=== PATIENT | female | born 1990 | race Caucasian/White ===

== ENCOUNTER 2017-03-15 06:10 | Emergency (ER) | payer SELFPAY ==
[2017-03-15 06:36] LABS: APPEARANCE,URINE TURBID; BILIRUBIN,URINE NEGATIVE (NEGATIVE); GLUCOSE, URINE NEGATIVE (NEGATIVE); KETONES,URINE NEGATIVE (NEGATIVE); LEUKOCYTE ESTERASE,URINE LARGE (NEGATIVE); NITRITE,URINE NEGATIVE (NEGATIVE); PROTEIN,URINE 100 mg/dL (NEGATIVE); URINE SPECIFIC GRAVITY 1.025; UROBILINOGEN,URINE NEGATIVE mg/dL (<2.0)
[2017-03-15] MEDS ORDERED: CEPHALEXIN 500 MG CAPSULE PO ONE (07:50)
--- NOTE | 2017-03-15 07:57 | ER Document Report ---
ED General - General Chief Complaint: Urinary Problem Stated Complaint: ABDOMINAL PAIN Time Seen by Provider: 03/15/17 07:11 Mode of Arrival: Ambulatory Information source: Patient Notes: 26-year-old female presents with complaints of urinary frequency urgency and suprapubic pressure. Patient denies any fevers or chills denies any vomiting, patient states she is always nauseous. She denies a history of any kidney stones notes she is currently on her menses TRAVEL OUTSIDE OF THE [place] IN LAST 30 DAYS: No - HPI Onset: Yesterday Onset/Duration: Sudden Quality of pain: Burning Severity: Mild Pain Level: 1 Associated symptoms: Other Exacerbated by: Other - urination Relieved by: Denies Similar symptoms previously: Yes Recently seen / treated by doctor: No - Related Data Allergies/Adverse Reactions: ibuprofen [Ibuprofen] Allergy (Verified 03/15/17 07:32) iodine [Iodine] Allergy (Verified 03/15/17 07:32) Past Medical History - Social History Smoking Status: Never Smoker Cigarette use (# per day): No Chew tobacco use (# tins/day): No Smoking Education Provided: No Family History: Reviewed & Not Pertinent Patient has suicidal ideation: No Patient has homicidal ideation: No Pulmonary Medical History: Reports: Hx Asthma - spots induced Neurological Medical History: Reports: Hx Migraine, Hx Seizures Renal/ Medical History: Denies: Hx Peritoneal Dialysis Traumatic Medical History: Reports: Hx Traumatic Brain Injury - subdural hematoma Past Surgical History: Reports: Hx Neurologic Surgery - Immunizations Hx Diphtheria, Pertussis, Tetanus Vaccination: Yes Review of Systems - Review of Systems Notes: REVIEW OF SYSTEMS: CONSTITUTIONAL : Denies fever, chills, or sweats. Denies recent illness. EENT: Denies eye, ear, throat, or mouth pain or symptoms. Denies nasal or sinus congestion or discharge. Denies throat, tongue, or mouth swelling or difficulty swallowing. CARDIOVASCULAR: Denies chest pain. Denies palpitations or racing or irregular heart beat. Denies ankle edema. RESPIRATORY: Denies cough, cold, or chest congestion. Denies shortness of breath, difficulty breathing, or wheezing. GASTROINTESTINAL: Denies abdominal pain or distention. Denies nausea, vomiting , or diarrhea. Denies blood in vomitus, stools, or per rectum. Denies black, tarry stools. Denies constipation. GENITOURINARY: admits to frequency, urgency . FEMALE GENITOURINARY: Denies vaginal bleeding, heavy or abnormal periods, irregular periods. Denies vaginal discharge or odor. MUSCULOSKELETAL: Denies back or neck pain or stiffness. Denies joint pain or swelling. SKIN: Denies rash, lesions or sores. HEMATOLOGIC : Denies easy bruising or bleeding. LYMPHATIC: Denies swollen, enlarged glands. NEUROLOGICAL: Denies confusion or altered mental status. Denies passing out or loss of consciousness. Denies dizziness or lightheadedness. Denies headache. Denies weakness or paralysis or loss of use of either side. Denies problems with gait or speech. Denies sensory loss, numbness, or tingling. Denies seizures. PSYCHIATRIC: Denies anxiety or stress. Denies depression, suicidal ideation, or homicidal ideation. ALL OTHER SYSTEMS REVIEWED AND NEGATIVE. PHYSICAL EXAMINATION: GENERAL: Well-appearing, well-nourished and in no acute distress. HEAD: Atraumatic, normocephalic. EYES: Pupils equal round and reactive to light, extraocular movements intact, conjunctiva are normal. ENT: Nares patent, oropharynx clear without exudates. Moist mucous membranes. NECK: Normal range of motion, supple without lymphadenopathy LUNGS: Breath sounds clear to auscultation bilaterally and equal. No wheezes rales or rhonchi. HEART: Regular rate and rhythm without murmurs ABDOMEN: Soft,mild suprapubic tenderness , no flank pain . Female : deferred Musculoskeletal: Normal range of motion, no pitting or edema. No cyanosis. NEUROLOGICAL: Cranial nerves grossly intact. Normal speech, normal gait. Normal sensory, motor exams PSYCH: Normal mood, normal affect. SKIN: Warm, Dry, normal turgor, no rashes or lesions noted. Dictation was performed using 500px voice recognition software Physical Exam - Vital signs Vitals: Temp Pulse Resp BP Pulse Ox 97.9 F 78 18 110/65 99 03/15/17 06:14 03/15/17 06:14 03/15/17 06:14 03/15/17 06:14 03/15/17 06:14 Course - Re-evaluation Re-evalutation: 03/15/17 07:53 Patient has obvious urinary tract infection will be started on antibiotics, she has no signs of pyelonephritis or a infected stone After performing a Medical Screening Examination, I estimate there is LOW risk for ACUTE APPENDICITIS, BOWEL OBSTRUCTION, ACUTE CHOLECYSTITIS, PERFORATED DIVERTICULITIS, INCARCERATED HERNIA, PANCREATITIS, PELVIC INFLAMMATORY DISEASE, PERFORATED ULCER, ECTOPIC , or TUBO-OVARIAN ABSCESS, thus I consider the discharge disposition reasonable. Also, there is no evidence or peritonitis , sepsis, or toxicity. I have reevaluated this patient multiple times and no significant life threatening changes are noted. The patient and I have discussed the diagnosis and risks, and we agree with discharging home with close follow-up with the understanding that symptoms and presentations can change. We also discussed returning to the Emergency Department immediately if new or worsening symptoms occur. We have discussed the symptoms which are most concerning (e.g., bloody stool, fever, changing or worsening pain, vomiting) that necessitate immediate return. 03/15/17 07:57 - Vital Signs Vital signs: Temp Pulse Resp BP Pulse Ox 97.9 F 78 18 110/65 99 03/15/17 06:14 03/15/17 06:14 03/15/17 06:14 03/15/17 06:14 03/15/17 06:14 - Laboratory Laboratory results interpreted by me: 03/15/17 06:20 Urine Protein 100 H Urine Blood LARGE H Ur Leukocyte Esterase LARGE H Discharge - Discharge Clinical Impression: Suprapubic pressure UTI (urinary tract infection) Qualifiers: Urinary tract infection type: acute cystitis Hematuria presence: with hematuria Qualified Code(s): N30.01 - Acute cystitis with hematuria Condition: Stable Disposition: HOME, SELF-CARE Instructions: Urinary Tract Infection ([facility]) Additional Instructions: Follow up with your physician tomorrow for further care or return to the ED IMMEDIATELY if symptoms worsen or new concerns occur. If you cannot afford to follow up with your primary care physician a list of low cost clinics have been provided at the end of your discharge papers as well. Prescriptions: Cephalexin Monohydrate [Keflex 500 mg Capsule] 500 mg PO BID #10 capsule Phenazopyridine HCl [Pyridium] 200 mg PO Q8 #9 tablet
[2017-03-15 08:21] VITALS: BP 101/76
== END 2017-03-15 08:24 | disposition home or self-care (01) ==
LOC: ER 06:10
DX: N30.01 Acute cystitis with hematuria (principal); R11.0 Nausea; R10.2 Pelvic and perineal pain; Z88.6 Allergy status to analgesic agent; Z87.820 Personal history of traumatic brain injury
CPT/HCPCS: 81001; 81025; 99284

== ENCOUNTER 2017-05-10 18:39 | Emergency (ER) | payer SELFPAY ==
--- NOTE | 2017-05-10 19:08 | ER Document Report ---
ED Medical Screen (RME) - General Chief Complaint: Vaginal Pain Stated Complaint: VAGINAL DISCOMFORT Time Seen by Provider: 05/10/17 19:02 Mode of Arrival: Ambulatory Information source: Patient TRAVEL OUTSIDE OF THE [place] IN LAST 30 DAYS: No - HPI Patient complains to provider of: Vaginal discharge Notes: 05/10/17 19:07 Patient is a 26-year-old female presenting to the emergency room today complaining of vaginal discharge with irritation and odor that has been going on for approximately 1 week, she tried to use [id number] Monistat cream which did not alleviate her symptoms at all, she has an IUD, admits to unprotected sex with her of 3 years - Related Data Allergies/Adverse Reactions: Androgenic Anabolic Steroid Allergy (Verified 05/10/17 19:05) diphenhydramine [From Benadryl] Allergy (Verified 05/10/17 19:05) iodine [Iodine] Allergy (Verified 05/10/17 18:57) ondansetron [From Zofran (as hydrochloride)] Allergy (Verified 05/10/17 19:05) tramadol Allergy (Verified 05/10/17 19:05) Home Medications: Current Home Medications No Home Medications 05/10/17 [History] Past Medical History Pulmonary Medical History: Reports: Hx Asthma - spots induced Neurological Medical History: Reports: Hx Migraine, Hx Seizures Renal/ Medical History: Denies: Hx Peritoneal Dialysis Traumatic Medical History: Reports: Hx Traumatic Brain Injury - subdural hematoma Past Surgical History: Reports: Hx Neurologic Surgery - Immunizations Hx Diphtheria, Pertussis, Tetanus Vaccination: Yes Physical Exam - Vital signs Vitals: Temp Pulse Resp BP Pulse Ox 99.0 F 77 16 118/64 98 05/10/17 18:55 05/10/17 18:55 05/10/17 18:55 05/10/17 18:55 05/10/17 18:55 Course - Vital Signs Vital signs: Temp Pulse Resp BP Pulse Ox 99.0 F 77 16 118/64 98 05/10/17 18:55 05/10/17 18:55 05/10/17 18:55 05/10/17 18:55 05/10/17 18:55
--- NOTE | 2017-05-10 19:28 | ER Document Report ---
ED GI/ - General Chief Complaint: Vaginal Pain Stated Complaint: VAGINAL DISCOMFORT Time Seen by Provider: 05/10/17 19:02 Mode of Arrival: Ambulatory Information source: Patient Notes: 26-year-old female presents to ED for complaint of vaginal discharge irritation and odor for over a week. She states she has tried [id number] Monistat cream but she did not have any relief from her symptoms. She does have an IUD and she has been for 3 years to her . She states she does not think she has any STD but she does not understand why she cannot get rid of this discharge. TRAVEL OUTSIDE OF THE [place] IN LAST 30 DAYS: No - HPI Patient complains to provider of: Vaginal discharge, Vaginal pain. No: Vaginal bleeding Onset: Last week Timing/Duration: Persistent Quality of pain: Other - Irritation Severity at maximum: Mild Severity in ED: Mild Pain Level: 2 Location: Vaginal Vaginal bleeding (Compared to normal period): None LMP: 05/07/2017 Associated symptoms: Vaginal discharge, Other - Vaginal irritation discharge odor Exacerbated by: Denies Relieved by: Denies Similar symptoms previously: Yes Recently seen / treated by doctor: No - Related Data Allergies/Adverse Reactions: Androgenic Anabolic Steroid Allergy (Verified 05/10/17 19:05) diphenhydramine [From Benadryl] Allergy (Verified 05/10/17 19:05) iodine [Iodine] Allergy (Verified 05/10/17 18:57) ondansetron [From Zofran (as hydrochloride)] Allergy (Verified 05/10/17 19:05) tramadol Allergy (Verified 05/10/17 19:05) Home Medications: Current Home Medications No Home Medications 05/10/17 [History] Past Medical History - General Information source: Patient - Social History Smoking Status: Former Smoker Cigarette use (# per day): No Chew tobacco use (# tins/day): No Smoking Education Provided: No Frequency of alcohol use: Social Drug Abuse: None 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 [email or web address] Lives with: Family Family History: Other - States she does not know her family medical history Patient has suicidal ideation: No Patient has homicidal ideation: No - Past Medical History Cardiac Medical History: Reports: None Pulmonary Medical History: Reports: Hx Asthma - spots induced EENT Medical History: Reports: None Neurological Medical History: Reports: Hx Migraine, Hx Seizures Endocrine Medical History: Reports: None, Other - Gilbert's Syndrome Renal/ Medical History: Reports: None Malignancy Medical History: Reports: None GI Medical History: Reports: None Musculoskeltal Medical History: Reports Hx Musculoskeletal Deformity, Reports Hx Musculoskeletal Trauma Skin Medical History: Reports None Psychiatric Medical History: Reports: None Traumatic Medical History: Reports: Hx Traumatic Brain Injury - subdural hematoma Infectious Medical History: Reports: None Past Surgical History: Reports: Hx Neurologic Surgery, Hx Orthopedic Surgery - left knee - Immunizations Immunizations up to date: Yes Hx Diphtheria, Pertussis, Tetanus Vaccination: Yes Review of Systems - Review of Systems Constitutional: No symptoms reported EENT: No symptoms reported Cardiovascular: No symptoms reported Respiratory: No symptoms reported Gastrointestinal: No symptoms reported Genitourinary: No symptoms reported Female Genitourinary: No symptoms reported Musculoskeletal: No symptoms reported Skin: No symptoms reported Hematologic/Lymphatic: No symptoms reported Neurological/Psychological: No symptoms reported -: Yes All other systems reviewed and negative Physical Exam - Vital signs Vitals: Temp Pulse Resp BP Pulse Ox 99.0 F 77 16 118/64 98 05/10/17 18:55 05/10/17 18:55 05/10/17 18:55 05/10/17 18:55 05/10/17 18:55 Interpretation: Normal - General General appearance: Appears well, Alert - HEENT Head: Normocephalic, Atraumatic Eyes: Normal Pupils: PERRL - Respiratory Respiratory status: No respiratory distress Chest status: Nontender Breath sounds: Normal Chest palpation: Normal - Cardiovascular Rhythm: Regular Heart sounds: Normal auscultation Murmur: No - Abdominal Inspection: Normal Distension: No distension Bowel sounds: Normal Tenderness: Nontender Organomegaly: No organomegaly - Genitourinary External exam: Normal Speculum exam: Vaginal discharge - minimal Vaginal bleeding: None Bimanuel exam: No: Cervical motion tender, Bladder/Urethral tender, Adnexal mass , Adnexal tenderness, Uterus enlarged - Back Back: Normal, Nontender - Extremities General upper extremity: Normal inspection, Nontender, Normal color, Normal ROM , Normal temperature General lower extremity: Normal inspection, Nontender, Normal color, Normal ROM , Normal temperature, Normal weight bearing. No: Caridad's sign - Neurological Neuro grossly intact: Yes Cognition: Normal Orientation: AAOx4 [place] Coma Scale Eye Opening: Spontaneous [place] Coma Scale Verbal: Oriented [place] Coma Scale Motor: Obeys Commands [place] Coma Scale Total: 15 Speech: Normal Motor strength normal: LUE, RUE, LLE, RLE Sensory: Normal - Psychological Associated symptoms: Normal affect, Normal mood - Skin Skin Temperature: Warm Skin Moisture: Dry Skin Color: Normal Course - Re-evaluation Re-evalutation: 05/10/17 22:31 Patient called and given the results of her GC and chlamydia. She had been treated with Rocephin and azithromycin before discharge because I did not have the results of the test before she was discharged. Her urine and her wet mount were negative. Patient to follow-up with her primary doctor. - Vital Signs Vital signs: Temp Pulse Resp BP Pulse Ox 98.5 F 87 16 110/68 99 05/10/17 21:22 05/10/17 21:22 05/10/17 21:22 05/10/17 21:22 05/10/17 21:22 - Laboratory Laboratory results interpreted by me: 05/10/17 19:00 Urine Protein 30 H Ur Leukocyte Esterase TRACE H Discharge - Discharge Clinical Impression: Vaginitis Qualifiers: Chronicity: acute Qualified Code(s): N76.0 - Acute vaginitis Condition: Stable Disposition: HOME, SELF-CARE Instructions: Family Physicians / Practices Additional Instructions: VAGINITIS: Your exam shows that you have vaginitis, a vaginal infection. The infection can be caused by a many different organisms, including trichomonas or Gardnerella. The usual symptoms are vaginal irritation and discharge. The treatment is usually antibiotics such as Flagyl. Laboratory tests can determine which germ is responsible. Use the medication as prescribed. Because this infection can be transmitted sexually, your sexual partner may need to be checked and treated also. If your physician has not discussed this with you, please check before resuming sexual relations. If a culture shows gonorrhea or chlamydia, the infection must be reported to the health department. Call the doctor if you develop pelvic pain, fever, or problems with urination, or if you don't improve as expected. CEPHALOSPORINS: An antibiotic of the cephalosporin class has been prescribed. This type of antibiotic covers a wide variety of infections, including those of the skin, lungs, middle ear, and urinary tract. This antibiotic is somewhat similar to the penicillin family. In rare cases , a person who is allergic to penicillin will also be allergic to this medication. If you have had a severe allergic reaction to penicillin, and have not taken this antibiotic since that time, notify your doctor. Antibiotics which cover many germs ("broad spectrum" antibiotics) are more likely to cause diarrhea or "yeast" infections. Women prone to vaginal yeast problems may suffer an attack after taking this antibiotic. In infants, oral thrush (white spots "stuck" on the cheek) or yeast diaper rash may result. See your doctor if these problems occur. Call the doctor at once if you develop hives, itching, shortness of breath , or lightheadedness. AZITHROMYCIN: Azithromycin (Zithromax) is a broad spectrum antibiotic in the same class as erythromycin. It can treat a variety of bacterial infections, but is most frequently used for respiratory infections. Azithromycin is extremely long-lasting. It accumulates in body tissues and continues to kill bacteria for many days. In order to improve absorption, Azithromycin should be taken at least one hour before or two hours after a meal. It does not have the same strong tendency to upset the stomach as erythromycin and is usually very well tolerated. Patients who have had a rash or other true allergic reactions to erythromycin should not take this medication. Call if you develop gastrointestinal distress, severe diarrhea, rash, hives, itching, or shortness of breath. FOLLOW-UP CARE: If you have been referred to a physician for follow-up care, call the physician s office for an appointment as you were instructed or within the next two days. If you experience worsening or a significant change in your symptoms, notify the physician immediately or return to the Emergency Department at any time for re-evaluation.
[2017-05-10] MEDS ORDERED: AZITHROMYCIN 250 MG TABLET PO ONE (20:31)
[2017-05-10] MEDS ORDERED: LIDOCAINE 1% INJ-PF (10 MG/ML) 30 ML SDV INJ ONE (20:31)
[2017-05-10] MEDS ORDERED: CEFTRIAXONE INJ 250 MG VIAL IM ONE (20:31)
[2017-05-10 20:55] LABS: APPEARANCE,URINE SLIGHTLY-CLOUDY; BILIRUBIN,URINE NEGATIVE (NEGATIVE); GLUCOSE, URINE NEGATIVE (NEGATIVE); KETONES,URINE NEGATIVE (NEGATIVE); LEUKOCYTE ESTERASE,URINE TRACE (NEGATIVE); NITRITE,URINE NEGATIVE (NEGATIVE); PROTEIN,URINE 30 mg/dL (NEGATIVE); URINE SPECIFIC GRAVITY 1.029; UROBILINOGEN,URINE NEGATIVE mg/dL (<2.0)
[2017-05-10 21:24] VITALS: BP 110/68
[2017-05-10 21:51] LABS: CHLAM PCR NOT DETECTED (NOT DETECT)
== END 2017-05-10 21:22 | disposition home or self-care (01) ==
LOC: ER 18:39
DX: N76.0 Acute vaginitis (principal); R10.2 Pelvic and perineal pain; N89.8 Other specified noninflammatory disorders of vagina; Z87.891 Personal history of nicotine dependence
CPT/HCPCS: 99283; 96372; 87086; 87210; 81025; 81001; 87491; 87591; J3490; J0696

== ENCOUNTER 2018-07-17 23:19 | Emergency (ER) | payer SELFPAY ==
[2018-07-17] MEDS ORDERED: HYDROMORPHONE HCL INJ/PF 2 MG/ML AMPULE IM ONE (23:44)
--- NOTE | 2018-07-17 23:49 | ER Document Report ---
ED General - General Chief Complaint: Fall Stated Complaint: FALL, RIGHT HIP/LEG INJURY Time Seen by Provider: 07/17/18 23:38 Notes: Patient is a pleasant 27-year-old female presents with complaint of right hip, right thigh, and right knee pain. She was on a deck and the deck broken her leg went through the deck. She said she did fall forward but did not hit her head. She does have previous history of a subdural hematoma from a previous fall but says she did not hit her head and has no headache or head pain. No pain in her left leg. No pain in her upper extremities. No pain in her back or neck. She is not on blood thinners. She has no other complaints at this time. She states she can feel into her foot and toes but is just a little bit "tingly"in some areas. TRAVEL OUTSIDE OF THE [place] IN LAST 30 DAYS: No - Related Data Allergies/Adverse Reactions: Androgenic Anabolic Steroid Allergy (Verified 05/10/17 19:05) diphenhydramine [From Benadryl] Allergy (Verified 05/10/17 19:05) iodine [Iodine] Allergy (Verified 05/10/17 18:57) ondansetron [From Zofran (as hydrochloride)] Allergy (Verified 05/10/17 19:05) tramadol Allergy (Verified 05/10/17 19:05) Past Medical History - Social History Smoking Status: Never Smoker Frequency of alcohol use: None Drug Abuse: None Family History: Reviewed & Not Pertinent, Other - States she does not know her family medical history Pulmonary Medical History: Reports: Hx Asthma - spots induced Neurological Medical History: Reports: Hx Migraine, Hx Seizures Renal/ Medical History: Denies: Hx Peritoneal Dialysis Musculoskeletal Medical History: Reports Hx Musculoskeletal Deformity, Reports Hx Musculoskeletal Trauma Traumatic Medical History: Reports: Hx Traumatic Brain Injury - subdural hematoma Past Surgical History: Reports: Hx Neurologic Surgery, Hx Orthopedic Surgery - left knee - Immunizations Immunizations up to date: Yes Hx Diphtheria, Pertussis, Tetanus Vaccination: Yes Review of Systems - Review of Systems Notes: My Normal Review Basic REVIEW OF SYSTEMS: CONSTITUTIONAL : Denies fever, chills, or sweats. Denies recent illness. MUSCULOSKELETAL: Right hip and knee pain SKIN: Denies rash or skin lesions.. NEUROLOGICAL: Denies altered mental status or loss of consciousness. Denies headache. Denies weakness or paralysis or loss of use of either side. Denies problems with gait or speech. Denies sensory or motor loss. ALL OTHER SYSTEMS REVIEWED AND NEGATIVE. Physical Exam - Vital signs Vitals: Temp Pulse Resp BP Pulse Ox 98.0 F 91 18 120/67 98 07/17/18 23:30 07/17/18 23:30 07/17/18 23:30 07/17/18 23:30 07/17/18 23:30 - Notes Notes: General Appearance: Well nourished, alert, cooperative, no acute distress, moderate obvious discomfort. Vitals: reviewed, See vital signs table. Head: no swelling or tenderness to the head Eyes: PERRL, EOMI, Conjuctiva clear Neck: Supple, no neck tenderness, No thyromegaly Back: No tenderness to palpation of thoracic or lumbar spine. No step-offs or deformities. Lungs: No wheezing, No rales, No rhonci, No accessory muscle use, good air exchange bilaterally. Heart: Normal rate, Regular rythm, No murmur, no rub Extremities: strength 5/5 in all extremities, good pulses in all extremities, pain with extension of the right knee. She is able to hold the right leg in extension against gravity without difficulty. Some pain to palpation of the right knee that is mainly to the lateral and posterior aspect of the knee. No ligamentous laxity. Pain to palpation over lateral mid thigh and then up into the right hip. Pain with movement of the right hip. No obvious deformity. Pelvis is stable. No pain to palpation of left lower extremity. Patient is able to flex and extend the toes of the right foot. She is able to feel me touch all the toes on the right foot. Distal pulses are intact. Skin: warm, dry, appropriate color, no rash Neuro: speech clear, oriented x 3, normal affect, responds appropriately to questions. Course - Re-evaluation Re-evalutation: 07/18/18 06:52 Patient's x-rays are normal. She has no evidence of bony injury. She does not have any ligament laxity in the knee. I will give her crutches to use being that her to bear weight at this time. I informed her she should follow-up with orthopedist, Dr. Banks, on Saturday if she still having any pain with weightbearing that he can reevaluate her. I encouraged her return to ER if she has intractable pain or feels unwell. Patient agrees with plan was discharged home. Dictation of this chart was performed using voice recognition software; therefore, there may be some unintended grammatical errors. - Vital Signs Vital signs: Temp Pulse Resp BP Pulse Ox 98.1 F 75 14 125/75 98 07/18/18 01:49 07/18/18 01:49 07/18/18 01:49 07/18/18 01:49 07/18/18 01:49 Discharge - Discharge Clinical Impression: Contusion of right knee Qualifiers: Encounter type: initial encounter Qualified Code(s): S80.01XA - Contusion of right knee, initial encounter Contusion of right hip Qualifiers: Encounter type: initial encounter Qualified Code(s): S70.01XA - Contusion of right hip, initial encounter Condition: Good Disposition: HOME, SELF-CARE Instructions: Oral Narcotic Medication ([facility]) Additional Instructions: Please use the crutches until he can bear weight on your knee and leg without significant pain. Please follow-up with Dr. Banks, your orthopedist, on Saturday for reevaluation. Please return to the ER immediately if you have severe intractable pain, large swelling, or have any concerns whatsoever. Do not drive or operate machinery when taking the Morphine as it can cause drowsiness. Save the Morphine for breakthrough pain and take Tylenol 500mg every 4 hours. Prescriptions: Morphine Sulfate [Morphine Ir 15 Mg Tablet] 15 mg PO Q4 PRN #15 tablet PRN Reason: take for breakthrough pain
--- NOTE | 2018-07-18 00:32 | RADIOLOGY REPORT (SQ) ---
EXAM DESCRIPTION: XR HIP 2 OR MORE VIEWS, XR KNEE 4 OR MORE VIEWS COMPLETED DATE/TME: 07/17/2018 23:44 CLINICAL HISTORY: 27 years Female, trauma COMPARISON: None. Findings: IUD. Bones, joints, and soft tissues of the RIGHT XR HIP 2 VIEWS, XR KNEE 4 VIEWS appear otherwise intact. IMPRESSION: No acute findings.
--- NOTE | 2018-07-18 01:04 | RADIOLOGY REPORT (SQ) ---
EXAM DESCRIPTION: XR FEMUR 2 VIEWS COMPLETED DATE/TME: 07/18/2018 00:33 CLINICAL HISTORY: 27 years, Female, trauma COMPARISON: None. NUMBER OF VIEWS: TECHNIQUE: LIMITATIONS: None. FINDINGS: No fracture or dislocation. The hip and knee joints appear intact. IMPRESSION: No fracture or dislocation. 2011 [employer]- All Rights Reserved
[2018-07-18 01:51] VITALS: BP 125/75
== END 2018-07-18 01:49 | disposition home or self-care (01) ==
LOC: ER 23:19
DX: S70.01XA Contusion of right hip, initial encounter (principal); S80.01XA Contusion of right knee, initial encounter; M25.551 Pain in right hip; M25.561 Pain in right knee; M79.651 Pain in right thigh; W13.3XXA Fall through floor, initial encounter; R20.2 Paresthesia of skin; J45.909 Unspecified asthma, uncomplicated; Z88.8 Allergy status to other drugs, medicaments and biological substances; Z88.5 Allergy status to narcotic agent
CPT/HCPCS: 99283; 96372; 73552; 73502; 73564; J1170

== ENCOUNTER 2019-03-03 11:12 | Emergency (ER) | payer SELFPAY ==
[2019-03-03] MEDS ORDERED: PROMETHAZINE HCL 25 MG TABLET PO ONE (11:33)
--- NOTE | 2019-03-03 11:35 | ER Document Report ---
ED Medical Screen (RME) - General Chief Complaint: Probable Seizure Stated Complaint: FALL/HEAD INJURY Time Seen by Provider: 03/03/19 11:30 Mode of Arrival: Wheelchair Information source: Patient Notes: Patient states that she had a seizure at work and fell hitting her head and right hip. Patient reports nausea with vomiting. Patient does have a history of previous subdural hematoma with hardware placement. Patient has a history of seizures although is not on any medications to manage his seizures. I have greeted and performed a rapid initial assessment of this patient. A comprehensive ED assessment and evaluation of the patient, analysis of test results and completion of the medical decision making process will be conducted by additional ED providers. TRAVEL OUTSIDE OF THE [place] IN LAST 30 DAYS: No - Related Data Allergies/Adverse Reactions: Androgenic Anabolic Steroid Allergy (Verified 03/03/19 11:15) diphenhydramine [From Benadryl] Allergy (Verified 03/03/19 11:15) iodine [Iodine] Allergy (Verified 03/03/19 11:15) ondansetron [From Zofran (as hydrochloride)] Allergy (Verified 03/03/19 11:15) tramadol Allergy (Verified 03/03/19 11:15) Past Medical History Pulmonary Medical History: Reports: Hx Asthma - spots induced Neurological Medical History: Reports: Hx Migraine, Hx Seizures Renal/ Medical History: Denies: Hx Peritoneal Dialysis Musculoskeltal Medical History: Reports Hx Musculoskeletal Deformity, Reports Hx Musculoskeletal Trauma Traumatic Medical History: Reports: Hx Traumatic Brain Injury - subdural hematoma Past Surgical History: Reports: Hx Neurologic Surgery, Hx Orthopedic Surgery - left knee - Immunizations Immunizations up to date: Yes Hx Diphtheria, Pertussis, Tetanus Vaccination: Yes Physical Exam - Vital signs Vitals: Temp Pulse Resp BP Pulse Ox 98.3 F 82 16 120/75 98 03/03/19 11:23 03/03/19 11:23 03/03/19 11:23 03/03/19 11:23 03/03/19 11:23 - General Notes: Right parietal scalp tenderness - Neurological Neuro grossly intact: Yes Cognition: Normal [place] Coma Scale Eye Opening: Spontaneous [place] Coma Scale Verbal: Oriented [place] Coma Scale Motor: Obeys Commands [place] Coma Scale Total: 15 Course - Vital Signs Vital signs: Temp Pulse Resp BP Pulse Ox 98.3 F 82 16 120/75 98 03/03/19 11:23 03/03/19 11:23 03/03/19 11:23 03/03/19 11:23 03/03/19 11:23
[2019-03-03 12:17] LABS: ABSOLUTE LYMPHOCYTES (AUTO) 1.1 10^3/uL (0.5-4.7); ABSOLUTE MONOCYTES (AUTO) 0.3 10^3/uL (0.1-1.4); ABSOLUTE NEUT (AUTO) 4.3 10^3/uL (1.7-8.2); BASOPHILS % (AUTO) 0.3 % (0-2); EOSINOPHILS % (AUTO) 0.5 % (0-6); HEMATOCRIT 44.2 % (36.0-47.0); HEMOGLOBIN 15.1 g/dL (12.0-15.5); LYMPHOCYTES % (AUTO) 18.9 % (13-45); MEAN CORPUSCULAR HEMOGLOBIN 31.3 pg (27.0-33.4); MEAN CORPUSCULAR HGB CONC 34.1 g/dL (32.0-36.0); MEAN CORPUSCULAR VOLUME 92 fl (80-97); PLATELET COUNT 239 10^3/uL (150-450); RED BLOOD COUNT 4.81 10^6/uL (3.72-5.28); SEGMENTED NEUTROPHILS % (AUTO) 74.3 % (42-78); TOTAL CELLS COUNTED % (AUTO) 100 %; WHITE BLOOD COUNT 5.8 10^3/uL (4.0-10.5)
--- NOTE | 2019-03-03 12:33 | RADIOLOGY REPORT (SQ) ---
EXAM DESCRIPTION: CT HEAD WITHOUT COMPLETED DATE/TIME: 03/03/2019 11:56 am REASON FOR STUDY: fall, seizure,ESPOSITO hx sub hematoma/plate COMPARISON: CT brain 10/31/2013 TECHNIQUE: Axial images acquired through the brain without intravenous contrast. Images reviewed wi th bone, brain and subdural windows. Additional sagittal and coronal reconstructions were generated. Images stored on PACS. All CT scanners at this facility use dose modulation, iterative reconstruction, and/or weight based d osing when appropriate to reduce radiation dose to as low as reasonably achievable (ALARA). [facility]: Dose Right [facility]: CareDose [facility]: Dose Right [facility]: Teradose 4D [facility]: BlogBus RADIATION DOSE: CT Rad equipment meets quality standard of care and radiation dose reduction techniq ues were employed. CTDIvol: 53.2 mGy. DLP: 1044 mGy-cm. mGy. LIMITATIONS: None. FINDINGS: VENTRICLES: Normal size and contour. CEREBRUM: No masses. No hemorrhage. No midline shift. No evidence for acute infarction. Normal gra y/white matter differentiation. No areas of low density in the white matter. CEREBELLUM: No masses. No hemorrhage. No alteration of density. No evidence for acute infarction. EXTRAAXIAL SPACES: No fluid collections. No masses. ORBITS AND GLOBE: No intra- or extraconal masses. Normal contour of globe without masses. CALVARIUM: Old right frontal craniotomy, history of subdural hematoma PARANASAL SINUSES: No fluid or mucosal thickening. SOFT TISSUES: No mass or hematoma. OTHER: No other significant finding. IMPRESSION: OLD RIGHT FRONTAL CRANIOTOMY. OTHERWISE, UNREMARKABLE BRAIN CT WITHOUT CONTRAST. EVIDENCE OF ACUTE STROKE: NO. COMMENT: Quality ID # [id number]: Final reports with documentation of one or more dose reduction techniques (e.g., Automated exposure control, adjustment of the mA and/or kV according to patient size, use of iterative reconstruction technique) TECHNICAL DOCUMENTATION: JOB ID: [id number] [employer]- All Rights Reserved Reading location - IP/workstation name: [email or web address]
--- NOTE | 2019-03-03 12:45 | ER Document Report ---
ED Seizure - General Chief Complaint: Probable Seizure Stated Complaint: FALL/HEAD INJURY Time Seen by Provider: 03/03/19 11:30 Mode of Arrival: Wheelchair Notes: Patient brought in because she had a seizure today while at work. Patient has a history of seizures secondary to a fall with an injury and a subdural hematoma about 17 years ago. She had 4 bur holes and a metal plate put in her head. She was on medications for seizures, but stopped taking them about 9 years ago because she did not like the way they made her feel. She indicates that she was on something starting with a D, probably Depakote. She is been having some throbbing headache for a couple of days. When she fell today with her seizure, she hit her head on a hardwood floor. Patient's most recent seizure before today was about 10 months ago, in May last year. - Related Data Allergies/Adverse Reactions: Androgenic Anabolic Steroid Allergy (Verified 03/03/19 11:15) diphenhydramine [From Benadryl] Allergy (Verified 03/03/19 11:15) iodine [Iodine] Allergy (Verified 03/03/19 11:15) ondansetron [From Zofran (as hydrochloride)] Allergy (Verified 03/03/19 11:15) tramadol Allergy (Verified 03/03/19 11:15) Past Medical History - General Information source: Patient - Social History Smoking Status: Unknown if Ever Smoked Family History: Reviewed & Not Pertinent, Other - States she does not know her family medical history Pulmonary Medical History: Reports: Hx Asthma - spots induced Neurological Medical History: Reports: Hx Migraine, Hx Seizures Musculoskeletal Medical History: Reports Hx Musculoskeletal Deformity, Reports Hx Musculoskeletal Trauma Traumatic Medical History: Reports: Hx Traumatic Brain Injury - subdural hematoma Past Surgical History: Reports: Hx Neurologic Surgery, Hx Orthopedic Surgery - left knee - Immunizations Immunizations up to date: Yes Hx Diphtheria, Pertussis, Tetanus Vaccination: Yes Review of Systems - Review of Systems Notes: REVIEW OF SYSTEMS: CONSTITUTIONAL : Denies fever. EENT: Denies eye, ear, nose or mouth or throat pain or other symptoms. CARDIOVASCULAR: Denies chest pain. RESPIRATORY: Denies cough, chest congestion, or shortness of breath. GASTROINTESTINAL: Denies abdominal pain or nausea, vomiting, or diarrhea. GENITOURINARY: Denies difficulty or painful urinating, urinary frequency, blood in urine. History of endometriosis. MUSCULOSKELETAL: Denies back or neck pain. Denies joint pain or swelling. SKIN: Denies rash or skin lesions. NEUROLOGICAL: Patient says she has had a pressure headache for the past couple of days. ALL OTHER SYSTEMS REVIEWED AND NEGATIVE. Physical Exam - Vital signs Vitals: Temp Pulse Resp BP Pulse Ox 98.3 F 82 16 120/75 98 03/03/19 11:23 03/03/19 11:23 03/03/19 11:23 03/03/19 11:23 03/03/19 11:23 Interpretation: Normal Notes: PHYSICAL EXAMINATION: GENERAL: Well-appearing, in no acute distress. Awake, alert, and oriented x3. HEAD: Atraumatic, normocephalic. Tender right side of the head, in the parietal region, but I do not feel any significant lumps or bumps. No bleeding seen. EYES: Pupils equal round and reactive to light, extraocular movements intact. ENT: oropharynx clear without exudates. Moist mucous membranes. NECK: Normal range of motion, supple. LUNGS: Breath sounds clear and equal bilaterally. HEART: Regular rate and rhythm without murmurs. ABDOMEN: Soft, nontender. No guarding or rebound. No masses. BACK: No tenderness throughout entire back. EXTREMITIES: Normal range of motion without pain. NEUROLOGICAL: Normal speech, normal gait. Normal sensory, motor, and reflex exams. Awake, alert, and oriented x3. Cranial nerves normal. PSYCH: Normal mood, normal affect. SKIN: Warm, dry, no rashes. Course - Re-evaluation Re-evalutation: 03/03/19 18:15 Offered patient anti-seizure medications. I told her that there is been si gnificant improvements in the medication since she was taking Depakote 10 years ago. I suggested a prescription of Keppra, but the patient said that she was declining for the moment. I advised the patient not to drive her vehicle for the next few days. She really should be seen by a neurologist and certified is safe to be driving, but I do not think the patient is going to do that. I am giving her a note for work for a couple of days. She is advised to return at any time should she wish to be reevaluated or reconsider medications. - Vital Signs Vital signs: Temp Pulse Resp BP Pulse Ox 98 F 61 16 128/78 H 100 03/03/19 13:04 03/03/19 13:04 03/03/19 13:04 03/03/19 13:04 03/03/19 13:04 - Laboratory Result Diagrams: 03/03/19 11:50 03/03/19 11:50 Discharge - Discharge Clinical Impression: Seizures Condition: Stable Disposition: HOME, SELF-CARE Additional Instructions: Seizure You have had a seizure. Seizure disorders (epilepsy) of one sort or another affect about one out of 50 people. The seizure occurs because of abnormal electrical activity in the brain. Seizures may be due to drugs and alcohol, strokes, brain injury, or infection. In the most common form of epilepsy, no cause can be found. You will require further evaluation to determine the cause of your seizure, and to determine whether anti-seizure medication is required. This follow-up testing is important, so please call us if you encounter problems with scheduling of tests or appointments. YOU SHOULD NOT DRIVE until released to do so by your physician. 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 Call the doctor if seizures recur, or if you develop new symptoms such as fever, severe headache, stiff neck, confusion or increasing sleepiness, weakness or numbness, or visual problems. You have decided that you do not wish to take any antiseizure medications. Remember that I advised you that your threshold for having a seizure is lower soon after having a seizure than after a more sustained period of time. He should probably not drive a vehicle over the next 2 to 3 days, at a minimum. I did recommend he follow-up with a neurologist. FOLLOW-UP CARE: If you have been referred to a physician for follow-up care, call the physicians office for an appointment as you were instructed or within the next two days. If you experience worsening or a significant change in your symptoms, notify the physician immediately or return to the Emergency Department at any time for re-evaluation. Forms: Return to Work
[2019-03-03 13:05] VITALS: BP 128/78
== END 2019-03-03 13:10 | disposition home or self-care (01) ==
LOC: ER 11:12
DX: R56.9 Unspecified convulsions (principal); R51 Headache; W19.XXXA Unspecified fall, initial encounter; Z79.899 Other long term (current) drug therapy; J45.909 Unspecified asthma, uncomplicated
CPT/HCPCS: 36415; 70450; 85025; 99284

== ENCOUNTER 2020-02-14 01:00 | Emergency (ER) | payer BC ==
[2020-02-14 01:20] LABS: ABSOLUTE LYMPHOCYTES (AUTO) 1.5 10^3/uL (0.5-4.7); ABSOLUTE MONOCYTES (AUTO) 0.8 10^3/uL (0.1-1.4); BASOPHILS % (AUTO) 0.4 % (0-2); EOSINOPHILS % (AUTO) 0.2 % (0-6); HEMATOCRIT 41.6 % (36.0-47.0); HEMOGLOBIN 14.5 g/dL (12.0-15.5); LYMPHOCYTES % (AUTO) 14.5 % (13-45); MEAN CORPUSCULAR HEMOGLOBIN 32.2 pg (27.0-33.4); MEAN CORPUSCULAR HGB CONC 34.8 g/dL (32.0-36.0); MEAN CORPUSCULAR VOLUME 93 fl (80-97); MONOCYTES % (AUTO) 7.8 % (3-13); PLATELET COUNT 272 10^3/uL (150-450); RED BLOOD COUNT 4.49 10^6/uL (3.72-5.28); RED CELL DISTRIBUTION WIDTH 12.8 % (11.5-14.0); SEGMENTED NEUTROPHILS % (AUTO) 77.1 % (42-78); TOTAL CELLS COUNTED % (AUTO) 100 %; WHITE BLOOD COUNT 10.4 10^3/uL (4.0-10.5)
[2020-02-14 01:41] VITALS: BP 139/80
--- NOTE | 2020-02-14 01:46 | ER Document Report ---
ED General - General Chief Complaint: Seizure Stated Complaint: POSSIBLE SEIZURE Time Seen by Provider: 02/14/20 01:30 Notes: Patient is a 29-year-old female that comes to the emergency department for chief complaint of seizure. Patient states she had 2 beers, was playing darts, felt really hot, and then was witnessed having a seizure, falling to the ground, hitting the back of her head. Patient comes by EMS, she vomited once, she had a 10-second tonic-clonic seizure per EMS after this. Patient is awake, oriented, states she has a headache, denies neck pain, focal numbness or weakness, or any other complaints other than nausea. She states she does have a history of seizures in the past, last 1 was around a month ago, however she is not on seizure medications. She states she had a subdural hemorrhage at 11 years old from a head injury and occasionally has seizures because of this. She states that she has been on a variety of medications including Abilify, Seroquel, Xanax, lithium, however she is not currently on any medications because she was not tolerating the lithium after they stopped her other medications. She denies recreational drugs. TRAVEL OUTSIDE OF THE [place] IN LAST 30 DAYS: No - Related Data Allergies/Adverse Reactions: Androgenic Anabolic Steroid Allergy (Verified 03/03/19 11:15) diphenhydramine [From Benadryl] Allergy (Verified 03/03/19 11:15) iodine [Iodine] Allergy (Verified 03/03/19 11:15) ondansetron [From Zofran (as hydrochloride)] Allergy (Verified 03/03/19 11:15) tramadol Allergy (Verified 03/03/19 11:15) Past Medical History - General Information source: Patient - Social History Smoking Status: Never Smoker Chew tobacco use (# tins/day): No Frequency of alcohol use: Occasional Drug Abuse: None Lives with: Friend Family History: Reviewed & Not Pertinent, Other - States she does not know her family medical history Patient has homicidal ideation: No Pulmonary Medical History: Reports: Hx Asthma - spots induced Neurological Medical History: Reports: Hx Migraine, Hx Seizures Renal/ Medical History: Denies: Hx Peritoneal Dialysis Musculoskeletal Medical History: Reports Hx Musculoskeletal Deformity, Reports Hx Musculoskeletal Trauma Traumatic Medical History: Reports: Hx Traumatic Brain Injury - subdural hematoma at age 11 from trauma Past Surgical History: Reports: Hx Neurologic Surgery, Hx Orthopedic Surgery - left knee - Immunizations Immunizations up to date: Yes Hx Diphtheria, Pertussis, Tetanus Vaccination: Yes Review of Systems - Review of Systems Constitutional: See HPI EENT: No symptoms reported Cardiovascular: No symptoms reported Respiratory: No symptoms reported Gastrointestinal: See HPI Genitourinary: No symptoms reported Female Genitourinary: No symptoms reported Musculoskeletal: No symptoms reported Skin: No symptoms reported Hematologic/Lymphatic: No symptoms reported Neurological/Psychological: See HPI Physical Exam - Vital signs Vitals: Temp Resp Pulse Ox 98.9 F 24 H 97 02/14/20 01:03 02/14/20 01:03 02/14/20 01:03 - Notes Notes: GENERAL: Alert, does not appear to be in distress although patient moves slightly sluggishly HEAD: Normocephalic, atraumatic. EYES: Pupils equal, round, and reactive to light. Extraocular movements intact. ENT: Oral mucosa moist, tongue midline. Oropharynx unremarkable. Airway patent. Nares patent, sinuses non-tender, ear canals unremarkable, TM's intact. NECK: Full range of motion. Supple. Trachea midline. No lymphadenopathy. LUNGS: Clear to auscultation bilaterally, no wheezes, rales, or rhonchi. No respiratory distress. Non-tender chest wall. HEART: Regular rate and rhythm. No murmur ABDOMEN: Soft, non-tender. Non-distended. EXTREMITIES: Moves all 4 extremities spontaneously. No edema, normal radial and dorsalis pedis pulses bilaterally. No cyanosis. BACK: no cervical, thoracic, lumbar midline tenderness. No saddle anesthesia, normal distal neurovascular exam. Moves all extremities in full range of motion. NEUROLOGICAL: Alert and oriented x3. Normal speech. Cranial nerves II through XII grossly intact. Strength 5/5 in all extremities. PSYCH: Speaks quietly, however unremarkable otherwise SKIN: Warm, dry, normal turgor. No rashes or lesions noted. Course - Re-evaluation Re-evalutation: On my evaluation patient is complaining of a headache but she is alert, is not slurring her speech, ambulates without difficulty, does not have any signs of trauma. Patient does not appear to be postictal on my evaluation. However because of her alcohol, head injury, seizure, vomiting I recommended CAT scan of the head and neck, laboratory work-up which has already been drawn, bolus of Keppra and symptom management. However patient declined. She states that she has "been dealing with this kind of thing since I was 11", she states that she w ould like to be discharged to go home with her friend who is outside. I strongly recommended that we perform CAT scan imaging to rule out intracranial hemorrhage, discussed the possibilities of this and the disastrous potential if she does have one. Patient states understanding but again states that she will be discharged home and she will return if she worsens. I asked her to stay until I checked her blood alcohol level which is going to be resulted anytime and if she is clinically intoxicated then I would be legally responsible for her and she would need to stay regardless of her wishes. She does state agreement. I checked patient's labs, initial labs are still pending, alcohol is resulted however and is 97, I went back immediately to speak to the patient but patient had already left the room. Patient left the room, building, and went outside where she was found by her friend and her friend brought her back into the emergency department. Patient apologized but states that she simply just wants to leave. We removed her IV, I discussed this again and she still states that she will sign out AGAINST MEDICAL ADVICE. Patient is clinically sober, appears to have the capacity to make this decision and does state understanding of this discussion, I did discuss with Dr. Rose, patient was discharged AGAINST MEDICAL ADVICE. - Vital Signs Vital signs: Temp Pulse Resp BP Pulse Ox 98.9 F 22 H 139/80 H 98 02/14/20 01:07 02/14/20 01:04 02/14/20 01:04 02/14/20 01:04 - Laboratory Result Diagrams: 02/14/20 01:05 02/14/20 01:05 Laboratory results interpreted by me: 02/14/20 02/14/20 01:05 01:27 Potassium 3.2 L Carbon Dioxide 19 L BUN 5 L Urine Blood SMALL H Discharge - Discharge Clinical Impression: Seizure Head injury Qualifiers: Encounter type: initial encounter Qualified Code(s): S09.90XA - Unspecified injury of head, initial encounter Disposition: AGAINST MEDICAL ADVICE Additional Instructions: You are signing out AGAINST MEDICAL ADVICE. The recommendation is for a CAT scan of the head and neck because of your head injury and symptoms tonight. There is a chance that you have a bleed in your brain which could lead to your . Please seek medical evaluation/treatment or return immediately here for additional management.
[2020-02-14 01:48] LABS: APPEARANCE,URINE CLEAR; BILIRUBIN,URINE NEGATIVE (NEGATIVE); COLOR,URINE STRAW; GLUCOSE, URINE NEGATIVE (NEGATIVE); KETONES,URINE NEGATIVE (NEGATIVE); LEUKOCYTE ESTERASE,URINE NEGATIVE (NEGATIVE); NITRITE,URINE NEGATIVE (NEGATIVE); PROTEIN,URINE NEGATIVE (NEGATIVE); URINE SPECIFIC GRAVITY 1.001; UROBILINOGEN,URINE NEGATIVE mg/dL (<2.0)
[2020-02-14 01:50] LABS: ALBUMIN 4.4 g/dL (3.5-5.0); ALCOHOL 97 mg/dL (NONE DETECTED); ALKALINE PHOSPHATASE 63 U/L (38-126); ANION GAP 14 (5-19); ASPARTATE AMINO TRANSFERASE 18 U/L (14-36); BLOOD UREA NITROGEN 5 mg/dL (7-20); CALCIUM 9.5 mg/dL (8.4-10.2); CARBON DIOXIDE 19 mmol/L (22-30); CHLORIDE 105 mmol/L (98-107); GLUCOSE 98 mg/dL (75-110); POTASSIUM 3.2 mmol/L (3.6-5.0); TOTAL PROTEIN 7.4 g/dL (6.3-8.2)
[2020-02-14 01:57] LABS: URINE AMPHETAMINES SCREEN NEGATIVE; URINE BARBITURATES SCREEN NEGATIVE; URINE BENZODIAZEPINES SCREEN NEGATIVE; URINE COCAINE SCREEN NEGATIVE; URINE MARIJUANA (THC) SCREEN NEGATIVE; URINE METHADONE SCREEN NEGATIVE; URINE PHENCYCLIDINE SCREEN NEGATIVE
== END 2020-02-14 02:21 | disposition left against medical advice (07) ==
LOC: ER 01:00
DX: S09.90XA Unspecified injury of head, initial encounter (principal); R56.9 Unspecified convulsions; W19.XXXA Unspecified fall, initial encounter; Z88.6 Allergy status to analgesic agent
CPT/HCPCS: 36415; 80053; 80307; 81001; 83735; 84703; 85025; 99284